=== PATIENT | female | born 1970 | race Caucasian/White ===

== ENCOUNTER 2017-09-22 16:34 | Emergency (ER) | END 2017-09-22 17:06 | disposition home or self-care (01) ==

== ENCOUNTER 2019-02-27 15:23 | Emergency (ER) | payer OTHER ==
[~2019-02-27] VITALS: Ht 162.6 cm; Wt 127.5 kg
[~2019-02-27 15:23] MED LIST: AZIT250T PO; IBUP-1542 PO; LORA10CA PO
[2019-02-27 15:29] VITALS: BP 143/79; PULSE 104; RESP 16; Ht 162.6 cm; Wt 127.5 kg
--- NOTE | 2019-02-27 15:41 | ERD ---
ER Documentation Chief Complaint Chief Complaint R ear pain x2 days. no other symptoms HPI Patient is a 48-year-old female, presents the ER for concerns of right ear pain for the last 2 days. Patient denied fevers, chills, nausea, vomiting, cough, chest pain, shortness of breath or LOC. Patient denies any headache. No recent travel. No sick contacts. ROS All systems reviewed and are negative except as per history of present illness. Medications Home Meds Active Scripts Azithromycin* (Zithromax*) 250 Mg Tablet, 250 MG PO .ZPACK DIRECTED, #6 TAB TAKE 500 MG (2 TABS) THE FIRST DAY THEN 250 MG (1 TAB) DAYS 2-5 Prov:LC PRECIADO PA-C 02/27/19 Loratadine* (Claritin*) 10 Mg Capsule, 10 MG PO DAILY, #20 CAP Prov:MILDRED ARCEO PA-C 09/22/17 Ibuprofen* (Motrin*) 600 Mg Tab, 600 MG PO Q6, #30 TAB Prov:MILDRED ARCEO PA-C 09/22/17 Allergies Allergies: Coded Allergies: Penicillins (Verified Allergy, Mild, 12/20/09) PMhx/Soc History of Surgery: Yes (D AND C 2006) Anesthesia Reaction: No Hx Neurological Disorder: No Hx Respiratory Disorders: No Hx Cardiac Disorders: No Hx Psychiatric Problems: No Hx Miscellaneous Medical Probl: No Hx Alcohol Use: No Hx Substance Use: No Hx Tobacco Use: Yes (1/2 PACK A WEEK) FmHx Family History: No diabetes Physical Exam Vitals Vital Signs Date Temp Pulse Resp B/P (MAP) Pulse Ox O2 O2 Flow FiO2 Time Delivery Rate 02/27/19 98.6 104 16 143/79 98 15:29 (100) Physical Exam GENERAL: Well-developed, well-nourished female. Appears in no acute distress. HEAD: Normocephalic, atraumatic. EYES: Pupils are equally reactive bilaterally. EOMs grossly intact. No conjunctival erythema. ENT: Right TM appears erythematous and bulging. Left TM appears normal. Bilateral mastoid processes are nonerythematous, nontender. Moist mucous membranes. No uvula deviation. No kissing tonsils. NECK: Supple. No meningismus. Normal range of motion of the neck. LUNG: Clear to auscultation bilaterally. No rhonchi, wheezing, rales or coarse breath sounds. HEART: Regular rate and rhythm. No murmurs, rubs or gallops. EXTREMITIES: Equal pulses bilaterally. No peripheral clubbing, cyanosis or edema. No unilateral leg swelling. NEUROLOGIC: Alert and oriented. Moving all four extremities without any difficulty. Normal speech. Steady gait. SKIN: Normal color. Warm and dry. No rashes or lesions. Procedures/MDM MEDICAL DECISION MAKING: This is a 48-year-old female presents the ER for concerns of right ear pain x2 days. Vital signs were reviewed. Patient was afebrile. Patient was not hypoxic. physical exam findings are concerning for otitis media. Patient will be treated with course of she has an allergy to penicillin. Low suspicion for tympanic membrane perforation, mastoiditis, otic barotrauma, TMJ dysfunction, cerumen impaction, meningitis. Patient was nontoxic, [id number] prior to discharge.. PRESCRIPTIONS: Azithromycin DISCHARGE: At this time, patient is stable for discharge and outpatient management. I have instructed the patient to follow-up with his/her primary care physician in 1-2 days. I have discussed with the patient the possibility of needing to see a specialist for further workup and diagnostic studies if the pain persists. I have instructed the patient to promptly return to the ER at any time for any new or worsening symptoms including increased pain, fever, swelling, discharge or hearing loss. The patient and/or family expressed understanding of and agreement with this plan. All questions were answered. Home care instructions were prov ided. Disclaimer: Inadvertent spelling and grammatical errors are likely due to EHR/dictation software use and do not reflect on the overall quality of patient care. Also, please note that the electronic time recorded on this note does not necessarily reflect the actual time of the patient encounter. Departure Diagnosis: Primary Impression: Otitis media, right Otitis media type: unspecified Qualified Codes: H66.91 - Otitis media, unspecified, right ear Condition: Fair Patient Instructions: Otitis Media, Abx Tx (Adult) Additional Instructions: Call your primary care doctor TOMORROW for an appointment during the next 1-2 days.See the doctor sooner or return here if your condition worsens before your appointment time. LC PRECIADO PA-C Feb 27, 2019 15:41
== END 2019-02-27 15:37 | disposition home or self-care (01) ==
LOC: E/R 15:23
DX: H66.91 Otitis media, unspecified, right ear (principal); F17.210 Nicotine dependence, cigarettes, uncomplicated
CPT/HCPCS: 99283